=== PATIENT | male | born 1960 ===

== ENCOUNTER 2019-03-14 07:28 | Emergency (ER) | payer BC ==
[2019-03-14] MEDS ORDERED: 0.9 % SODIUM CHLORIDE 1,000 ML BAG IV ONE (08:04)
[2019-03-14] MEDS ORDERED: ONDANSETRON HCL IV 4 MG/2 ML VIAL IV ONE (08:04)
[2019-03-14] MEDS ORDERED: HYDROMORPHONE HCL 2 MG/ML VIAL IVP ONE ×2 (08:05→10:13)
--- NOTE | 2019-03-14 08:07 | Emergency Department Record ---
History of Present Illness - General Chief Complaint: Abdominal Pain Stated Complaint: STOMACH PAIN Time Seen by Provider: 03/14/19 07:57 Source: Patient, RN notes reviewed Mode of Arrival: Ambulatory - History of Present Illness Initial Comments: Patient states abd pain started 3 days ago and vomited times one today and three diarrhea stools yesterday and diffuse abd pain mostly lower quad pain. Onset/Timin -: Days(s) Location: Periumbilical Radiation: None Migration to: No migration Severity: Mild Severity scale (1-10): 4 Quality: Sharp Consistency: Constant Improves With: Nothing Worsens With: Nothing Associated Symptoms: Constipation, Diarrhea, Nausea - Related Data Home Medications Medication Instructions Recorded Confirmed Last Taken No Home Med [NO HOME MEDS] 03/14/19 03/14/19 Unknown Allergies Allergy/AdvReac Type Severity Reaction Status Date / Time No Known Drug Allergies Allergy Verified 03/14/19 07:37 Travel Screening - Travel/Exposure Within Last 30 Days Have you traveled within the last 30 days?: No Review of Systems Reviewed: No additional complaints except as noted below Constitutional: Reports: As per HPI. Denies: Chills, Fever, Malaise, Night sweats, Weakness, Weight change Eyes: Reports: As per HPI. Denies: Eye discharge, Eye pain, Photophobia, Vision change ENT: Reports: As per HPI. Denies: Congestion, Dental pain, Ear pain, Epistaxis, Hearing loss, Throat pain Respiratory: Reports: As per HPI. Denies: Cough, Dyspnea, Hemoptysis, Stridor, Wheezes Cardiovascular: Reports: As per HPI. Denies: Arrhythmia, Chest pain, Dyspnea on exertion, Edema, Murmurs, Orthopnea, Palpitations, Paroxysmal nocturnal dyspnea, Rheumatic Fever, Syncope Endocrine: Reports: As per HPI. Denies: Fatigue, Heat or cold intolerance, Polydipsia, Polyuria Gastrointestinal: Reports: As per HPI, Abdominal pain, Diarrhea, Nausea, Vomiting. Denies: Constipation, Hematemesis, Hematochezia, Melena Genitourinary: Reports: As per HPI. Denies: Dysuria, Frequency, Hematuria, Incontinence, Retention, Testicular pain, Testicular mass, Urgency Musculoskeletal: Reports: As per HPI. Denies: Arthralgia, Back pain, Gout, Joint swelling, Myalgia, Neck pain Skin: Reports: As per HPI. Denies: Bruising, Change in color, Change in hair/nails, Lesions, Pruritus, Rash Neurological: Reports: As per HPI. Denies: Abnormal gait, Confusion, Headache, Numbness, Paresthesias, Seizure, Tingling, Tremors, Vertigo, Weakness Psychiatric: Reports: As per HPI. Denies: Anxiety, Auditory hallucinations, Depression, Homicidal thoughts, Suicidal thoughts, Visual hallucinations Hematological/Lymphatic: Reports: As per HPI. Denies: Anemia, Blood Clots, Easy bleeding, Easy bruising, Swollen glands Past Medical History - SOCIAL HISTORY Smoking Status: Current every day smoker Alcohol Use: None Drug Use: None - RESPIRATORY Hx Respiratory Disorders: No - CARDIOVASCULAR Hx Cardio Disorders: No - NEURO Hx Neuro Disorders: No - GI Hx GI Disorders: No - Hx Genitourinary Disorders: No - ENDOCRINE Hx Endocrine Disorders: Yes Hx Diabetes: Yes - MUSCULOSKELETAL Hx Musculoskeletal Disorders: No - PSYCH Hx Psych Problems: No - HEMATOLOGY/ONCOLOGY Hx Hematology/Oncology Disorders: No Family Medical History Any Significant Family History?: No Physical Exam - General General Appearance: Alert, Oriented x3, Cooperative, No acute distress - Head Head exam: Normal inspection - Eye Eye exam: Normal appearance, PERRL Pupils: Normal accommodation - ENT ENT exam: Normal exam, Mucous membranes moist, Normal external ear exam, Normal orophraynx, TM's normal bilaterally Ear exam: Normal external inspection. negative: External canal tenderness Nasal Exam: Normal inspection. negative: Discharge, Sinus tenderness Mouth exam: Normal external inspection, Tongue normal Teeth exam: Normal inspection. negative: Dental caries Throat exam: Normal inspection. negative: Tonsillar erythema, Tonsillar exudate - Neck Neck exam: Normal inspection, Full ROM. negative: Tenderness - Respiratory Respiratory exam: Normal lung sounds bilaterally. negative: Respiratory distress - Cardiovascular Cardiovascular Exam: Regular rate, Normal rhythm, Normal heart sounds - GI/Abdominal GI/Abdominal exam: Soft, Normal bowel sounds, Tenderness (bilateral lower abd pain on palpation and no rebound pale color. ) - Rectal Rectal exam: Deferred - exam: Deferred - Extremities Extremities exam: Normal inspection, Full ROM, Normal capillary refill. negative: Tenderness - Back Back exam: Reports: Normal inspection, Full ROM. Denies: Muscle spasm, Rash noted, Tenderness - Neurological Neurological exam: Alert, Normal gait, Oriented X3, Reflexes normal - Psychiatric Psychiatric exam: Normal affect, Normal mood - Skin Skin exam: Dry, Intact, Normal color, Warm Course Vital Signs 03/14/19 07:33 Temperature 97.5 F L Pulse Rate 72 Respiratory 16 Rate Blood Pressure 142/87 Pulse Ox 94 L - Reevaluation(s) Reevaluation #1: 03/14/19 11:[address] Smith and will transfer to [facility] Medical Decision Making - Data Complexity MDM Data: Labs Ordered and/or Reviewed, X-Ray Ordered and/or Reviewed (CTA SMV thrombosis and portal vein thrombosis with inflamation), Decision to Obtain Old Record ( with inflammation) - Lab Data Result diagrams: 03/14/19 08:05 03/14/19 08:05 Disposition Clinical Impression: Thrombosis of mesenteric vein, Portal vein thrombosis Abdominal pain Qualifiers: Abdominal location: lower abdomen, unspecified Qualified Code(s): R10.30 - Lower abdominal pain, unspecified Disposition: Acute Care Hospital Transfer Condition: (2) Stable Forms: Patient Portal Access Time of Disposition: 11:10 Quality - Quality Measures Quality Measures: N/A - Blood Pressure Screening Does Patient Have Any of the Following: No Blood Pressure Classification: Pre-Hypertensive BP Reading Systolic Measurement: 142 Diastolic Measurement: 87 Screening for High Blood Pressure: < Pre-Hypertensive BP, F/U Documented > [G8950] Pre-Hypertensive Follow-up Interventions: Referral to alternative/primary care provider.
[2019-03-14 08:16] LABS: ABSOLUTE NEUTROPHIL COUNT 6.86; BASO % 0.3 % (0-6); EOS % 1.4 % (0-6); GRAN % 61.7 % (47-80); HEMATOCRIT 46.1 % (42.0-52.0); HEMOGLOBIN 15.4 gm/dl (14.0-18.0); LYMPH % 25.2 % (16-45); MEAN CELL VOLUME 98.7 fl (81-97); MEAN CORPUSCULAR HGB CONC 33.4 g/dl (32-36); MEAN PLATELET VOLUME 11.8 fl (7.4-10.4); MONO % 11.4 % (0-9); PLATELET COUNT 106 K/uL (130-400); RED BLOOD COUNT 4.67 M/uL (4.40-5.70); RED CELL DISTRIBUTION WIDTH 13.7 % (11.5-14.5); WHITE BLOOD COUNT W/O DIFF 11.1 K/uL (4.2-12.2)
[2019-03-14 08:29] LABS: BLOOD UREA NITROGEN 11 mg/dL (6-20); CREATININE 0.5 mg/dL (0.7-1.2); EST GLOMERULAR FILTRATION RATE > 60 mL/min; TOTAL PROTEIN 7.3 g/dL (6.6-8.7)
[2019-03-14 08:30] LABS: LIPASE 51 U/L (13-60)
[2019-03-14 08:31] LABS: GLUCOSE,RANDOM 166 mg/dL (74-109)
[2019-03-14 08:34] LABS: ALBUMIN 3.3 g/dL (4.0-5.0); ALKALINE PHOSPHATASE 105 U/L (40-129); ALT/SGPT 36 U/L (<41); AST/SGOT 44 U/L (10.0-50.0); BILIRUBIN,DIRECT 0.4 mg/dL (0-0.3)
[2019-03-14 10:16] LABS: URINE APPEARANCE CLEAR; URINE BILIRUBIN NEGATIVE (NEGATIVE); URINE BLOOD MODERATE (NEGATIVE); URINE COLOR YELLOW; URINE GLUCOSE (UA) NEGATIVE (NEGATIVE); URINE KETONE NEGATIVE (NEGATIVE); URINE LEUKOCYTE ESTERASE NEGATIVE (NEGATIVE); URINE NITRITE NEGATIVE (NEGATIVE); URINE PROTEIN NEGATIVE (NEGATIVE)
[2019-03-14 10:33] LABS: URINE BACTERIA FEW; URINE SQUAMOUS EPITHELIAL CELL 0 - 2 /hpf; URINE WBC 0 - 2 (0-2/hpf)
[2019-03-14 11:25] LABS: INR 1.2; PARTIAL THROMBOPLASTIN TIME 30.3 SECONDS (24.5-39.1)
--- NOTE | 2019-03-16 13:22 | CT ANGIOGRAM REPORT ---
EXAM: CT ANGIOGRAM OF THE ABDOMEN AND PELVIS HISTORY: WORSENING MID ABDOMINAL PAIN WITH INTERMITTENT DIARRHEA AND CONSTIPATION FOR FIVE DAYS. TECHNIQUE: Routine CTA examination of the abdomen and pelvis was performed with 100 ml of Omnipaque 350 utilized. Coronal and sagittal maximum intensity projection reformatted images are generated as well as 3D volume rendered images and reviewed. The patient returned to the CT Department one hour following the original imaging and repeat imaging was performed with additional intravenous contrast (95 ml of Omnipaque 300) administered. Imaging during portal venous phase of enhancement was performed. Comparison: None. FINDINGS: On the original CTA series, opacification of the systemic arteries is satisfactory for interpretation. There is minimal calcified atherosclerotic plaque scattered within the abdominal aorta. There is no evidence of aneurysm, dissection, nor clinically significant stenosis. CELIAC ARTERY: Widely patent as are its proximal branches. SUPERIOR MESENTERIC ARTERY: Widely patent as are its proximal branches. INFERIOR MESENTERIC ARTERY: Widely patent. RIGHT RENAL ARTERY: There is a single right renal artery. It is widely patent. LEFT RENAL ARTERY: There are two left renal arteries. The dominant more superiorly oriented left renal artery is widely patent. The smaller accessory renal artery arises slightly more inferiorly and supplies the lower pole. This also appears patent. The common iliac, external iliac, and internal iliac arteries are widely patent, normal in caliber and without dissection. The common femoral arteries and common femoral bifurcations are widely patent. Suggested on original CTA images and confirmed on portal venous phase images is evidence of thrombosis of the portal vein confluence with involvement of the superior mesenteric vein. The majority of the superior mesenteric vein appears involved. Evaluation of its branches is limited due to suboptimal opacification. There is associated moderate fat stranding within the mesenteric root and there is suggestion of congestion of the vascular arcades. There is no associated gross bowel dilatation nor definite wall thickening though evaluation of small bowel is limited by lack of distention. There are a few gas and fluid distended small bowel loops in the mid to upper abdomen right of midline. These approach the upper limits of normal in caliber. This pattern is nonspecific. There are occasional diverticular scattered within the left colon without evidence of diverticulitis. The appendix is visualized and normal in appearance. There is minor dependent atelectasis within the right lung base. Minimal linear scarring versus atelectasis also noted in the anterior right lung base. No pleural or pericardial effusion. The heart is not enlarged. The liver, spleen, pancreas, adrenal glands, and right kidney are normal in appearance. There is a too small to characterize hypodense lesion arising exophytically from the anterior lower pole of the right kidney measuring 8 mm. This is nonspecific, but likely a cyst. The left kidney is otherwise normal in appearance. Multiple calcified stones are noted in the dependent gallbladder lumen. No gallbladder wall thickening or pericholecystic fluid. No biliary ductal dilatation. No definite intraabdominal nor retroperitoneal lymphadenopathy. There are varices/collaterals in the left upper quadrant. This may relate to a splenorenal shunt. No pelvic mass, lymphadenopathy, or free pelvic fluid. No intrinsic urinary bladder abnormality. No free intraperitoneal air nor other extraluminal air. No lytic or blastic bone lesion. There are degenerative changes scattered throughout the visualized spine. IMPRESSION: 1. FINDINGS CONSISTENT WITH THROMBOSIS OF THE INFERIOR PORTAL VEIN/PORTAL VEIN CONFLUENCE WITH EXTENSION INTO THE SUPERIOR MESENTERIC VEIN. THERE IS ASSOCIATED MODERATE STRANDING OF FAT WITHIN THE MESENTERIC ROOT AND CONGESTION OF THE VASCULAR ARCADES. AT THIS TIME, NO GROSS BOWEL WALL THICKENING OR PNEUMATOSIS INTESTINALIS IS SEEN. THERE ARE A FEW LOOPS OF GAS DISTENDED BORDERLINE DILATED SMALL BOWEL IN THE MID TO UPPER ABDOMEN WHICH MAY RELATE TO ILEUS. 2. MILD DIVERTICULOSIS OF THE LEFT COLON. NORMAL APPENDIX. 3. VARICES IN THE LEFT UPPER QUADRANT POSSIBLY RELATING TO SPLENORENAL SHUNT. 4. NOT MENTIONED ABOVE IS QUESTIONABLE MICRONODULARITY OF THE LIVER. THIS CAN BE SEEN WITH CIRRHOSIS. 5. CHOLELITHIASIS. JOB NUMBER: [id number] [facility]
== END 2019-03-14 12:15 | disposition short-term general hospital (02) ==
LOC: ER 07:28
DX: I81 Portal vein thrombosis (principal); R10.33 Periumbilical pain; R11.2 Nausea with vomiting, unspecified; R19.7 Diarrhea, unspecified; E11.9 Type 2 diabetes mellitus without complications; F17.210 Nicotine dependence, cigarettes, uncomplicated
CPT/HCPCS: 74174; 80048; 80076; 81001; 83605; 83690; 84484; 85025; 85610; 85730; 93005; 93010; 96374; 96375; 96376; 99285; J2405; J7030

== ENCOUNTER 2019-06-04 12:06 | Day surgery (SDC) | payer BC ==
[2019-06-04] MEDS ORDERED: MIDAZOLAM HCL 2MG/2ML VIAL IV ONE (12:07)
[2019-06-04] MEDS ORDERED: PROPOFOL 10 MG/ML VIAL IV ONE (12:07)
[2019-06-04] MEDS ORDERED: LIDOCAINE 2% MDV (20MG/ML) 20ML VIAL IV ONE (12:07)
[2019-06-04 13:06] LABS: INR 1.3; PROTHROMBIN TIME (PATIENT) 12.8 SECONDS (9.5-12.1)
--- NOTE | 2019-06-06 08:50 | Operative Note ---
OPERATION: ESOPHAGOGASTRODUODENOSCOPY. INDICATION: Recent development of portal vein thrombosis. 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 At that time, according to the record, he had duodenal ulcer disease and multiple gastric polyps. He also had esophagitis. It was recommended that he have a recheck examination in 1 year's time. ANESTHESIA: Intravenous sedation was administered by the department of anesthesiology and included Diprivan titrated to effect. PROCEDURE: Following informed consent from this alert individual, including a discussion of the risks and benefits of the procedure and an opportunity for the patient to ask questions, the patient was in the left lateral decubitus position. The Olympus [id number] video endoscope was inserted into the esophagus without resistance. The proximal esophagus had a normal appearance with normal folds and distensibility. The mid esophagus likewise was free from mucosal abnormalities. The distal esophageal segment had a normal-appearing mucosa; however, there was suggestion of early perhaps grade 1 distal esophageal varices. There were no stigmata of any hemorrhage and again, this was quite minimal if at all. The mucosa flattened completely with some air insufflation. The squamocolumnar junction was smooth and well defined and approximated the diaphragmatic hiatus. The stomach was then entered. There was evidence of portal hypertensive gastropathy throughout the fundus with multiple small gastric fundal polyps noted as well. The antrum evaluated circumferentially was unremarkable. The pylorus was patent. The duodenal bulb, sweep and descending duodenum were examined in a serial fashion. There was some mild inflammatory change in the duodenal bulb. Sweep and descending duodenum were normal. The endoscope was then drawn back in the body of the stomach. Retroflexion accomplished following air insufflation failed to demonstrate any additional changes. Again portal hypertensive gastropathy was quite evident. The instrument was then withdrawn back through the esophagus which essentially looked unremarkable with perhaps very early grade 1 varices noted in the distal segment although this was not perfectly clear. The mid and proximal esophagus was normal. The endoscope was removed. The patient tolerated the procedure well and was returned to the recovery area in stable condition. IMPRESSION: 1. Suggestion of possible very small grade 1 distal esophageal varices although this is not perfectly clear. 2. Portal hypertensive gastropathy. 3. Duodenitis involving the duodenal bulb. RECOMMENDATION: I did recommend the patient have a recheck endoscopy in approximately 1 year's time to again check for any development of varices. He will be following up with Drs. Farah and Marilee. As always, thank you for allowing me to participate in the care of your patient. IWONA
--- NOTE | 2019-06-06 08:50 | Operative Note ---
OPERATION: COLONOSCOPY to the cecum with cold biopsy forceps polypectomy x1 and cold snare polypectomy x4. INDICATION: Prior history of colon polyps, diagnosed in [address] Clark, at which time 12 polyps were removed. All polyps on pathology at that time were hyperplastic in type. The patient was advised to return in [address] Clark. ANESTHESIA: Intravenous sedation was administered by the department of anesthesiology and included Diprivan titrated to effect. PROCEDURE: Following informed consent from this alert individual including a discussion of the risks and benefits of the procedure and an opportunity for the patient to ask questions, the patient was in the left lateral decubitus position. A digital rectal examination was performed. No abnormalities were noted. Following this, the Olympus [id number] video colonoscope was inserted into the rectum without resistance. The rectal mucosa had a normal appearance with normal folds and distensibility. The colonoscope was advanced up through the colon to the level of the cecum without much difficulty. Throughout the bowel the mucosa was somewhat edematous but distensibility was normal. The folds otherwise appeared normal. The cecum was defined by noting the appendiceal orifice and ileocecal valve. From the base of the cecum, the colonoscope was slowly withdrawn. In the ascending colon there was a diminutive 3 mm polyp noted along a fold which was removed with biopsy forceps. There were 2 polyps noted in the transverse colon and 2 polyps in the sigmoid colon each measuring between 4- 6 mm in size. The proximal 3 polyps were removed with a cold snare without incident. The distal sigmoid colon polyp was removed with cold polypectomy. There was some scant bleeding noted. For this reason, an Endoclip was placed with hemostasis noted. Retroflexion in the rectum was endoscopically unremarkable. The instrument was straightened and withdrawn. The patient tolerated the procedure well and was returned to the recovery area in stable condition. IMPRESSION: 1. A 3 mm ascending colon polyp removed with cold biopsy forceps. 2. Two transverse colon polyps and two sigmoid colon polyps measuring between 4- 6 mm in size removed with cold snare polypectomy. One Endoclip was placed at the distal polypectomy site in the sigmoid colon. RECOMMENDATIONS: Further recommendations will be forthcoming pending results of pathology obtained today. Followup will also be with Dr. Farah and Dr. Hunt. As always, thank you for allowing me to participate in the care of your patient. IWONA
== END 2019-06-04 14:45 | disposition home or self-care (01) ==
LOC: HOP 12:06
PROVIDERS: ATTEND Internal Medicine Gastroenterology
DX: Z09 Encounter for follow-up examination after completed treatment for conditions other than malignant neoplasm (principal); Z86.010 Personal history of colon polyps; D12.2 Benign neoplasm of ascending colon; D12.3 Benign neoplasm of transverse colon; D12.5 Benign neoplasm of sigmoid colon; Z87.19 Personal history of other diseases of the digestive system; I81 Portal vein thrombosis; K76.6 Portal hypertension; K31.89 Other diseases of stomach and duodenum; K31.7 Polyp of stomach and duodenum; K29.80 Duodenitis without bleeding; Z86.718 Personal history of other venous thrombosis and embolism
CPT/HCPCS: 85610